=== PATIENT | female | born 1945 | race Caucasian/White ===

== ENCOUNTER 2019-12-22 11:57 | Emergency (ER) | payer OTHER ==
[~2019-12-22] VITALS: Ht 165.1 cm; Wt 54.4 kg
--- NOTE | 2019-12-22 11:57 | NUR ---
Patient BIBA ALS, transferred to bed 6. RN evaluating patient at bedside.
[2019-12-22] MEDS ORDERED: NACL 0.9% 1,000 ML IV ONE (12:05)
--- NOTE | 2019-12-22 12:15 | NUR ---
Dr. Garcia is evaluating the patient at bedside.
[2019-12-22 12:16] VITALS: BP 101/76
[2019-12-22] MEDS ORDERED: MULTIVITAMIN-12 10 ML, THIAMINE 100 MG, MAGNESIUM SULFATE 50% 2,000 MG, FOLIC ACID 1 MG... IV SCH ×5 (12:30)
[2019-12-22 12:46] LABS: BASOPHILS % (AUTO) 0.9 % (0.0-2.0); EOSINOPHILS % (AUTO) 0.9 % (0.0-4.0); HEMATOCRIT 33.4 % (36-48); HEMOGLOBIN 11.5 g/dL (12.0-16.0); LYMPHOCYTES # (AUTO) 1.7 K/uL (2.5-16.5); LYMPHOCYTES % (AUTO) 43.2 % (20.5-51.1); MEAN CORPUSCULAR HEMOGLOBIN 31 pg (27-31); MEAN CORPUSCULAR HGB CONC 35 g/dL (33-37); MEAN CORPUSCULAR VOLUME 91.1 fL (80-94); MONOCYTES # (AUTO) 0.2 K/uL (0.8-1.0); MONOCYTES % (AUTO) 6.3 % (1.7-9.3); NEUTROPHILS # (AUTO) 1.9 K/uL (1.8-7.7); NEUTROPHILS % (AUTO) 48.7 % (42.2-75.2); PLATELET COUNT (AUTO) 265 K/uL (140-450); RED BLOOD CELL COUNT(AUTO) 3.66 MIL/uL (4.20-5.40); RED CELL DISTRIBUTION WIDTH 15.1 % (11.6-13.7); WHITE BLOOD COUNT (AUTO) 3.9 K/uL (4.8-10.8)
[2019-12-22 13:05] LABS: ANION GAP 15.6 (8-16); ASPARTATE AMINOTRANSFERASE 66 U/L (15-37); CARBON DIOXIDE 27.3 mmol/L (21-32); CHLORIDE 105 mmol/L (98-107); CREATININE 1.1 mg/dL (0.6-1.3); GLUCOSE 101 mg/dL (74-106); POTASSIUM 3.9 mmol/L (3.5-5.1); SODIUM SERUM 144 mmol/L (136-145); TOTAL BILIRUBIN 0.2 mg/dL (0.0-1.0); UREA NITROGEN, BLOOD 16 mg/dL (7-18)
[2019-12-22 13:16] LABS: SALICYLATE < 2.8 mg/dL (2.8-20.0)
[2019-12-22 13:18] LABS: ACETAMINOPHEN < 0.5 ug/ml (10-30)
[2019-12-22 14:27] LABS: BARBITURATE, URINE NEG. ng/ml (NEG <=200); BENZODIAZEPINE, URINE POS. ng/mL (NEG <=200); CANNABINOID, URINE NEG. ng/mL (NEG <=50); COCAINE, URINE NEG. ng/mL (NEG <=300); OPIATE, URINE NEG. ng/mL (NEG <=2000); PHENCYCLIDINE SCREEN,URINE NEG. ng/mL (NEG <=25)
--- NOTE | 2019-12-22 14:45 | NUR ---
AMBULATORY TO RESTROOM WITHOUT ASSISTANCE.
--- NOTE | 2019-12-22 15:00 | NUR ---
AMBULATORY TO RESTROOM WITHOUT ASSITANCE.
--- NOTE | 2019-12-22 15:10 | NUR ---
MATTHEW TO D/C PER DR NYE.
[2019-12-22 15:11] VITALS: BP 101/76
--- NOTE | 2019-12-22 15:12 | NUR ---
IV removed, catheter intact and site benign. Applied folded 4x4 gauze and tape to stop bleeding.
--- NOTE | 2019-12-22 15:12 | NUR ---
74 YO FEMAL BIBA FOR ETOH INTOXICATION. PT HAS 0/10 PAIN. NO MED HX AND NO RX MEDS AT THIS TIME.
--- NOTE | 2019-12-22 15:12 | NUR ---
Patient discharged with v/s stable. Written and verbal after care instructions given and explained. Patient verbalized understanding. Ambulatory with steady gait. All questions addressed prior to discharge. Advised to follow up with PMD.
== END 2019-12-22 15:12 | disposition home or self-care (01) ==
LOC: MED 11:57
DX: F10.129 Alcohol abuse with intoxication, unspecified (principal); F32.89 Other specified depressive episodes; E05.00 Thyrotoxicosis with diffuse goiter without thyrotoxic crisis or storm
CPT/HCPCS: 36415; 80053; 80305; 81002; 85025; 93005; 96365; 99284; G0480; G0482; J7030; A9153; J3411; J3475; J3490